=== PATIENT | female | born 1995 | race Caucasian/White ===

== ENCOUNTER 2018-10-07 02:24 | Emergency (ER) | payer BC ==
[2018-10-07] MEDS ORDERED: IBUPROFEN 800 MG TAB PO ONE (02:43)
--- NOTE | 2018-10-07 02:43 | EDPHY ---
H & P Stated Complaint: dx w/mono saturday. came to ED because throat pain worsening Time Seen by Provider: 10/07/18 02:42 HPI/ROS: HPI CHIEF COMPLAINT: Sore throat diagnosed with mono. HISTORY OF PRESENT ILLNESS: Patient is a 23-year-old female, otherwise healthy , diagnosed on Saturday or 5 days ago with mono. A week before that she had a strep test and was negative however was placed on a course of antibiotics she has completed that antibiotics however her throat pain continues to give her discomfort. She went to urgent care on Saturday and was diagnosed with mono. At that time she was given 1 dose of steroids felt slightly better. She has been alternating Tylenol Motrin she last took Tylenol 2 hr ago and Motrin over 5 hr ago. She arrives to the emergency room with worsening throat pain. She denies any fever. Does have pain when she swallows. Denies cough. Denies trouble breathing. Past Medical History: Denies medical history Past Surgical History: Denies surgical history Social History: Denies drugs alcohol tobacco. [employer] student. Family History: Noncontributory ROS REVIEW OF SYSTEMS: 10 Systems were reviewed and negative with the exception of the elements mentioned in the history of present illness. Exam Constitutional triage nursing summary reviewed, vital signs reviewed, awake/ alert. Tachycardic 120 upon arrival Eyes normal conjunctivae and sclera, EOMI, PERRLA. HENT posterior pharynx erythematous, uvula midline, no asymmetrical swelling, her tonsillar bed is 3+ but not kissing, symmetrical, some mild white exudate, no signs of Steve's, no stridor, able to handle her secretions, moist mucus membranes, no epistaxis, neck supple/ no meningismus, no raccoon eyes. Respiratory clear to auscultation bilaterally, normal breath sounds, no respiratory distress, no wheezing. Cardiovascular tachycardia, regular rhythm, no murmur, no edema, distal pulses normal. Gastrointestinal soft, non-tender, no rebound, no guarding, normal bowel sounds, no distension, no pulsatile mass. Genitourinary no CVA tenderness. Musculoskeletal no midline vertebral tenderness, full range of motion, no calf swelling, no tenderness of extremities, no meningismus, good pulses, neurovascularly intact. Skin pink, warm, & dry, no rash, skin atraumatic. Neurologic awake, alert and oriented x 3, AAOx3, moves all 4 extremities equally, motor intact, sensory intact, CN II-XII intact, normal cerebellar, normal vision, normal speech. Psychiatric normal mood/affect. Heme/Lymph/Immune no lymphadenopathy. Differential Diagnosis: Includes but is not limited to in a particular order: Viral pharyngitis, strep pharyngitis, mono, tonsillitis, deep space neck infection Medical Decision Making: Plan for this patient IV establishment with IV fluid bolus, IV Decadron 10 mg for inflammation pain control, ibuprofen 800 mg, cold fluids. Basic blood work and re-evaluate. Re-evaluation: Rapid strep negative [place] is positive. 0432: Re-evaluation this patient resting comfortably no acute distress. 2nd L fluid hung. No stridor no trismus. Strep is negative mono was positive She is feeling better after IV Toradol and IV Decadron and her 1st L fluid. Re-examination she reports to me that her throat hurts however she is able swallow her she was concerned that the swelling was going further down her neck. Given this will plan on CT soft tissue neck with IV contrast to make sure there is no deep space abscess. I believe her symptoms are mostly consistent with mono and pharyngitis. I do recommend she drink lots of fluids stay well-hydrated. Alternate Tylenol Motrin every 6-8 hours for pain control Decadron for the next 3 days Follow up with ENT Return precautions discussed she understands. CT scan soft tissue neck with IV contrast findings which appear most consistent bilateral palatine and lingual tonsillitis No discrete tonsillar peritonsillar abscess although based on the appearance of multiple areas of relative decreased attenuation within the tonsils there may be bilateral developing tonsillar abscesses. I will discuss this patient with ENT. 0616: Discussed case with ENT. KELLY Hawkins on-calll for ENT, be glad to see the patient in the office today. We discussed case in detail including lab work , CT scan findings. I asked if they would like me to put her on antibiotics however they are requesting that hold off on antibiotics and follow up with ENT today. I discussed this with the patient. She would like to go home. I do recommend she alternate Tylenol Motrin. Prescription provided for Decadron. Follow up closely with ENT She should return emergency room if she has worsening symptoms including severe throat pain, vomiting, fever, not doing well. Source: Patient - Personal History LMP (Females 10-55): 22-28 Days Ago Current Tetanus/Diphtheria Vaccine: Yes Current Tetanus Diphtheria and Acellular Pertussis (TDAP): Yes - Medical/Surgical History Hx Asthma: No Hx Chronic Respiratory Disease: No Hx Diabetes: No Hx Cardiac Disease: No Hx Renal Disease: No Hx Cirrhosis: No Hx Alcoholism: No Hx HIV/AIDS: No Hx Splenectomy or Spleen Trauma: No Other PMH: denies - Social History Smoking Status: Never smoked Constitutional: Initial Vital Signs Temperature (C) 37.2 C 10/07/18 02:28 Heart Rate 120 H 10/07/18 02:28 Respiratory Rate 20 10/07/18 02:28 Blood Pressure 138/99 H 10/07/18 02:28 O2 Sat (%) 95 10/07/18 02:28 O2 Delivery Mode Room Air Allergies/Adverse Reactions: No Known Allergies Allergy (Unverified 10/07/18 02:27) Home Medications: Medication Instructions Recorded Amoxicillin/Clavulanate Pot 875 mg PO BID #14 tab 10/07/18 [Augmentin 875 MG TAB (*)] Dexamethasone [Decadron 4 MG (*)] 4 mg PO DAILY #4 tab 10/07/18 Medical Decision Making - Data Points Laboratory Results: Laboratory Results 10/07/18 03:00 10/07/18 03:00 10/07/18 10/07/18 10/07/18 Unknown 03:00 03:00 WBC RBC Hgb Hct MCV MCH MCHC RDW Plt Count MPV Neut % (Auto) Lymph % (Auto) [place] % (Auto) Eos % (Auto) Baso % (Auto) Nucleat RBC Rel Count Absolute Neuts (auto) Absolute Lymphs (auto) Absolute Monos (auto) Absolute Eos (auto) Absolute Basos (auto) Absolute Nucleated RBC Immature Gran % Seg Neutrophils % Band Neutrophils % Lymphocytes % Monocytes % Eosinophils % Basophils % Metamyelocytes % Myelocytes % Promyelocytes % Blast Cells % Immature Gran # Absolute Seg Neuts Absolute Band Neuts Absolute Lymphocytes Absolute Monocytes Absolute Eosinophils Absolute Basophils Absolute Metamyelocyte Absolute Myelocytes Absolute Promyelocytes Absolute Plasma Cells RBC/WBC/PLT Morphology Absolute Blast Cells Plasma Cells % Smudge Cells Platelet Estimate Smear Review By Sodium 138 mEq/L mEq/L (135-145) Potassium 3.8 mEq/L mEq/L (3.5-5.2) Chloride 108 mEq/L mEq/L (97-110) Carbon Dioxide 21 mEq/l L mEq/l (22-31) Anion Gap 9 mEq/L mEq/L (6-14) BUN 12 mg/dL mg/dL (7-23) Creatinine 0.5 mg/dL L mg/dL (0.6-1.0) Estimated GFR > 60 Glucose 94 mg/dL mg/dL (70-100) Calcium 8.7 mg/dL mg/dL (8.5-10.4) Monoscreen POSITIVE H (NEGATIVE) Group A Strep Screen Group A Strep DNA Pending 10/07/18 10/07/18 03:00 02:45 WBC 7.83 10^3/uL 10^3/uL (3.80-9.50) RBC 3.91 10^6/uL L 10^6/uL (4.18-5.33) Hgb 11.8 g/dL L g/dL (12.6-16.3) Hct 35.3 % L % (38.0-47.0) MCV 90.3 fL fL (81.5-99.8) MCH 30.2 pg pg (27.9-34.1) MCHC 33.4 g/dL g/dL (32.4-36.7) RDW 14.6 % % (11.5-15.2) Plt Count 130 10^3/uL L 10^3/uL (150-400) MPV 10.4 fL fL (8.7-11.7) Neut % (Auto) Not Reported Lymph % (Auto) Not Reported [place] % (Auto) Not Reported Eos % (Auto) Not Reported Baso % (Auto) Not Reported Nucleat RBC Rel Count Not Reported Absolute Neuts (auto) Not Reported Absolute Lymphs (auto) Not Reported Absolute Monos (auto) Not Reported Absolute Eos (auto) Not Reported Absolute Basos (auto) Not Reported Absolute Nucleated RBC Not Reported Immature Gran % Not Reported Seg Neutrophils % 47.6 % % Band Neutrophils % 1.9 % % Lymphocytes % 37.9 % % Monocytes % 9.7 % % Eosinophils % 0.0 % % Basophils % 1.0 % % Metamyelocytes % 0.0 % % Myelocytes % 1.0 % % Promyelocytes % 0.0 % % Blast Cells % 1.0 % % Immature Gran # Not Reported Absolute Seg Neuts 3.72 10^3/uL 10^3/uL (1.70-6.50) Absolute Band Neuts 0.15 10^3/uL 10^3/uL (0.00-0.70) Absolute Lymphocytes 2.96 10^3/uL 10^3/uL (1.00-3.00) Absolute Monocytes 0.76 10^3/uL 10^3/uL (0.30-0.80) Absolute Eosinophils 0.00 10^3/uL L 10^3/uL (0.03-0.40) Absolute Basophils 0.08 10^3/uL 10^3/uL (0.02-0.10) Absolute Metamyelocyte 0.00 10^3/mL 10^3/mL (0.00-0.00) Absolute Myelocytes 0.08 10^3/mL H 10^3/mL (0.00-0.00) Absolute Promyelocytes 0.00 10^3/uL 10^3/uL (0.00-0.00) Absolute Plasma Cells 0.00 10^3/uL 10^3/uL (0.00-0.00) RBC/WBC/PLT Morphology NORMAL (NORMAL) Absolute Blast Cells 0.08 10^3/uL H 10^3/uL (0.00-0.00) Plasma Cells % 0.0 % % Smudge Cells 1+ H Platelet Estimate DECREASED L (ADEQ) Smear Review By Pending Sodium Potassium Chloride Carbon Dioxide Anion Gap BUN Creatinine Estimated GFR Glucose Calcium Monoscreen Group A Strep Screen NEGATIVE (NEGATIVE) Group A Strep DNA Medications Given: Discontinued Medications Dexamethasone (Decadron Injection) 10 mg IVP EDNOW ONE Stop: 10/07/18 02:50 Last Admin: 10/07/18 03:07 Dose: 10 mg Diphenhydramine HCl (Benadryl) 25 mg PO EDNOW ONE Stop: 10/07/18 06:11 Last Admin: 10/07/18 06:10 Dose: 25 mg Sodium Chloride (Ns) 1,000 mls @ 0 mls/hr IV EDNOW ONE; Wide Open PRN Reason: Protocol Stop: 10/07/18 02:49 Last Admin: 10/07/18 03:07 Dose: 1,000 mls Sodium Chloride (Ns) 1,000 mls @ 0 mls/hr IV ONCE ONE PRN Reason: Wide Open Stop: 10/07/18 04:32 Last Admin: 10/07/18 04:40 Dose: 1,000 mls Ibuprofen (Motrin) 800 mg PO EDNOW ONE Stop: 10/07/18 02:44 Last Admin: 10/07/18 03:17 Dose: Not Given Ketorolac Tromethamine (Toradol) 30 mg IVP EDNOW ONE Stop: 10/07/18 03:03 Last Admin: 10/07/18 03:07 Dose: 30 mg Ketorolac Tromethamine (Toradol) 30 mg IVP EDNOW ONE Stop: 10/07/18 03:03 Last Admin: 10/07/18 03:08 Dose: Not Given Departure - Departure Disposition: Home, Routine, Self-Care Condition: Good Instructions: Mononucleosis (ED), Pharyngitis (ED) Additional Instructions: 1. Make sure to drink lots of fluids stay well-hydrated 2. Alternate Tylenol and Motrin every 6-8 hours for pain and fever control 3. Return to the emergency room if worsening symptoms 4. Please follow up with ENT today. They will see you in their office. 5. Return if worse. 6. Follow up with ENT today. 7. Have given you a prescription for Augmentin but hold this prescription to use ENT today. Referrals: NONE *PRIMARY CARE P,. [Primary Care Provider] - As per Instructions Jose Escobedo MD [Medical Doctor] - As per Instructions Prescriptions: Amoxicillin/Clavulanate Pot [Augmentin 875 MG TAB (*)] 875 mg PO BID #14 tab Dexamethasone [Decadron 4 MG (*)] 4 mg PO DAILY #4 tab
[2018-10-07] MEDS ORDERED: NS 1,000 ML IV ONE ×2 (02:48→04:31)
[2018-10-07] MEDS ORDERED: DEXAMETHASONE 10 MG/ML VIAL IVP ONE (02:49)
[2018-10-07] MEDS ORDERED: KETOROLAC 30 MG/1 ML SDV IVP ONE ×2 (03:02)
[2018-10-07 03:14] LABS: PLATELET COUNT 130 10^3/uL (150-400)
[2018-10-07] MEDS ORDERED: IOHEXOL 350mgI/ML (OMNIPAQUE) 150 ML BTL IV ONE (04:34)
[2018-10-07] MEDS ORDERED: diphenhydrAMINE 25 MG CAP PO ONE ×2 (06:09→06:10)
[2018-10-07 06:32] VITALS: BP 124/82
== END 2018-10-07 06:31 | disposition home or self-care (01) ==
DX: B27.90 Infectious mononucleosis, unspecified without complication (principal); J02.9 Acute pharyngitis, unspecified; E86.9 Volume depletion, unspecified
CPT/HCPCS: 96374; J1100; J1885; Q9967

== ENCOUNTER 2018-10-08 19:47 | Observation (INO) | payer BC ==
[2018-10-08] MEDS ORDERED: NS 1,000 ML IV ONE ×2 (20:11)
[2018-10-08] MEDS ORDERED: KETOROLAC 30 MG/1 ML SDV IVP ONE (20:12)
[2018-10-08] MEDS ORDERED: CLINDAMYCIN 600 MG/DEXTROSE 50 ML IV ONE (20:12)
[2018-10-08] MEDS ORDERED: DEXAMETHASONE 10 MG/ML VIAL IVP ONE (20:12)
--- NOTE | 2018-10-08 20:17 | EDPHY ---
H & P Stated Complaint: Pt dx juliana zarate on Saturday was unable to get into ENT Time Seen by Provider: 10/08/18 20:11 HPI/ROS: HPI: This is a 23-year-old female presents with Chief Complaint: [place], throat pain Location: Throat Quality: Pain Duration: 1 week Signs and Symptoms: no fever times 48 hr, no nausea, no vomiting, no diarrhea, no urinary symptoms, no chest pain, no shortness of breath, no wheezing, no cough, + sore throat, no neck stiffness, no joint pain, + swollen glands, no ear pain, no rash, + muffled voice, no drooling Timing: Worsening Severity: Severe Context: Patient presents accompanied by both parents who flew in from [place] , with complaints of continued throat pain, muffled voice, difficulty swallowing , swollen glands. She reports that 6 days ago she started to experience shows sore throat in her strep was negative but started on antibiotics. She then went to the urgent care on Saturday in strep was negative at that time but mono was positive. Patient was then seen in the emergency room 2 days ago, rapid strep negative at that time, mononucleosis positive, given IV Toradol, IV Decadron and also script for Augmentin with ENT follow-up with Dr. Escobedo. Patient reports that she has not been able to follow up with Dr. Escobedo as he has been "out of town." CT neck at that time was performed which showed moderate enlargement and enhancement of the adenoid, lingual and palatine tonsils without in [place] upon the oropharynx and nasopharynx in associated phlegmon formation bilaterally without abscess. Reactive lymphadenopathy within the neck noted. She did take Decadron orally yesterday and today. She is able to drink vitamin water and had a few bite of beef stew. Denies any abdominal pain, nausea, vomiting, fevers over the last 48 hr. Patient has also noted within the last 24 hr a fine pinpoint rash that covers her torso and upper extremities. It is not itchy in nature. Modifying Factors: See above Comment: ROS: A comprehensive 10 system review of systems is otherwise negative aside from elements mentioned in the history of present illness. MEDICAL/SURGICAL/SOCIAL HISTORY: Medical history: Generally healthy. Does not take any regular medications. LMP 2-3 weeks ago. Surgical history: Denies Social history: Student at [employer]. Family history noncontributory. CONSTITUTIONAL: Ill but nontoxic-appearing young adult white female, awake and alert, no obvious distress HEENT: Atraumatic and normocephalic, PERRL, EOMI. Nares patent; no rhinorrhea; no nasal mucosal edema. Tympanic membranes clear. Oropharynx clear, + halitosis; 2+ tonsillar hypertrophy with moderate erythema; uvula midline; white exudate and dry oral mucosa. Airway patent. Moderate anterior cervical lymphadenopathy. No meningismus. Cardiovascular: Normal S1/S2, regular rate, regular rhythm, without murmur rub or gallop. PULMONARY/CHEST: Symmetrical and nontender. Clear to auscultation bilaterally. Good air movement. No accessory muscle usage. ABDOMEN: Soft, nondistended, nontender, no rebound, no guarding, no peritoneal signs, no masses or organomegaly. No CVAT. EXTREMITIES: 2/2 pulses, strength 5/5, no deformities, no clubbing, no cyanosis or edema. NEUROLOGICAL: no focal neuro deficits. GCS 15. muffled voice noted. SKIN: Warm and dry, finding raise seen pipe her rash noted on torso and upper extremities; blanches with palpation. Good capillary refill. Source: Patient, Family (father and mother) Exam Limitations: Clinical condition - Personal History LMP (Females 10-55): 15-21 Days Ago Current Tetanus/Diphtheria Vaccine: Yes Current Tetanus Diphtheria and Acellular Pertussis (TDAP): Yes - Medical/Surgical History Hx Asthma: No Hx Chronic Respiratory Disease: No Hx Diabetes: No Hx Cardiac Disease: No Hx Renal Disease: No Hx Cirrhosis: No Hx Alcoholism: No Hx HIV/AIDS: No Hx Splenectomy or Spleen Trauma: No Other PMH: denies - Social History Smoking Status: Never smoked Constitutional: Initial Vital Signs Temperature (C) 37.1 C 10/08/18 19:48 Heart Rate 96 10/08/18 19:48 Respiratory Rate 16 10/08/18 19:48 Blood Pressure 134/99 H 10/08/18 19:48 O2 Sat (%) 99 10/08/18 19:48 O2 Delivery Mode Room Air Allergies/Adverse Reactions: No Known Allergies Allergy (Verified 10/08/18 19:51) Home Medications: Medication Instructions Recorded Amoxicillin/Clavulanate Pot 875 mg PO BID #14 tab 10/07/18 [Augmentin 875 MG TAB (*)] Dexamethasone [Decadron 4 MG (*)] 4 mg PO DAILY #4 tab 10/07/18 Medical Decision Making ED Course/Re-evaluation: Vital signs reviewed and stable upon arrival. Placed on cardiac nurse specialist. IV access, laboratory studies ordered Patient given 2 L normal saline, IV Decadron 10 mg, IV Toradol 30 mg, IV clindamycin Labs reviewed. No signs of leukocytosis/anemia/platelet dysfunction/LISBETH/ electrolyte imbalance/pancreatitis. + elevated LFTs, elevated CRP. No signs of sepsis. Patient has a new rash that is scarlet fever/strep rash looking. Wonder if she has not been properly treated with antibiotics. Ten that is why she has failed outpatient therapy. 210: ED decision to consult hospitalist for admission. Spoke with Dr. Alarcon who kindly agrees to admit patient for further care. This patient was seen under the supervision of my secondary supervising physician. I evaluated care for this patient with attending. Discussed this patient with Dr. Rucker. Differential Diagnosis: Differential diagnosis includes but is not limited to airway compromise, tonsillar abscess, sepsis. - Data Points Laboratory Results: Laboratory Results 10/08/18 20:18 10/08/18 10/08/18 10/08/18 20:18 20:18 20:18 WBC RBC Hgb Hct MCV MCH MCHC RDW Plt Count MPV Neut % (Auto) Lymph % (Auto) [place] % (Auto) Eos % (Auto) Baso % (Auto) Nucleat RBC Rel Count Absolute Neuts (auto) Absolute Lymphs (auto) Absolute Monos (auto) Absolute Eos (auto) Absolute Basos (auto) Absolute Nucleated RBC Immature Gran % Immature Gran # Platelet Estimate ESR VBG Lactic Acid 1.3 mmol/L mmol/L (0.7-2.1) Total Bilirubin 0.8 mg/dL mg/dL (0.1-1.4) Conjugated Bilirubin 0.4 mg/dL mg/dL (0.0-0.5) Unconjugated Bilirubin 0.4 mg/dL mg/dL (0.0-1.1) AST 325 IU/L H IU/L (14-46) ALT 454 IU/L H IU/L (9-52) Alkaline Phosphatase 125 IU/L IU/L (38-126) C-Reactive Protein 34.8 mg/L H mg/L (<10.0) Total Protein 7.3 g/dL g/dL (6.3-8.2) Albumin 3.7 g/dL g/dL (3.5-5.0) Beta HCG, Qual NEGATIVE 10/08/18 20:18 WBC 9.21 10^3/uL 10^3/uL (3.80-9.50) RBC 4.23 10^6/uL 10^6/uL (4.18-5.33) Hgb 12.9 g/dL g/dL (12.6-16.3) Hct 39.4 % % (38.0-47.0) MCV 93.1 fL fL (81.5-99.8) MCH 30.5 pg pg (27.9-34.1) MCHC 32.7 g/dL g/dL (32.4-36.7) RDW 14.2 % % (11.5-15.2) Plt Count 159 10^3/uL 10^3/uL (150-400) MPV 10.2 fL fL (8.7-11.7) Neut % (Auto) Pending Lymph % (Auto) Pending [place] % (Auto) Pending Eos % (Auto) Pending Baso % (Auto) Pending Nucleat RBC Rel Count Pending Absolute Neuts (auto) Pending Absolute Lymphs (auto) Pending Absolute Monos (auto) Pending Absolute Eos (auto) Pending Absolute Basos (auto) Pending Absolute Nucleated RBC Pending Immature Gran % Pending Immature Gran # Pending Platelet Estimate Pending ESR 16 MM/HR MM/HR (0-20) VBG Lactic Acid Total Bilirubin Conjugated Bilirubin Unconjugated Bilirubin AST ALT Alkaline Phosphatase C-Reactive Protein Total Protein Albumin Beta HCG, Qual Medications Given: Discontinued Medications Dexamethasone (Decadron Injection) 10 mg IVP EDNOW ONE Stop: 10/08/18 20:13 Last Admin: 10/08/18 20:18 Dose: 10 mg Clindamycin Phosphate/Dextrose (Cleocin 600 Mg (Premix)) 50 mls @ 100 mls/hr IV EDNOW ONE PRN Reason: Protocol Stop: 10/08/18 20:41 Last Admin: 10/08/18 20:23 Dose: 50 mls Sodium Chloride (Ns) 1,000 mls @ 0 mls/hr IV ONCE ONE; Wide Open PRN Reason: Protocol Stop: 10/08/18 20:12 Last Admin: 10/08/18 20:17 Dose: 1,000 mls Sodium Chloride (Ns) 1,000 mls @ 0 mls/hr IV ONCE ONE; Wide Open PRN Reason: Protocol Stop: 10/08/18 20:12 Last Admin: 10/08/18 20:30 Dose: 1,000 mls Ketorolac Tromethamine (Toradol) 30 mg IVP EDNOW ONE Stop: 10/08/18 20:13 Last Admin: 10/08/18 20:25 Dose: 30 mg Departure - Departure Disposition: [facility] Acute Clinical Impression: Unable to eat, Tonsillar and adenoid hypertrophy, Elevated LFTs, Rash, Failure of outpatient treatment Infectious mononucleosis Qualifiers: Infectious mononucleosis etiology: unspecified organism Infectious mononucleosis complication: without complication Qualified Code(s): B27.90 - Infectious mononucleosis, unspecified without complication Condition: Fair
[2018-10-08 20:29] LABS: PLATELET COUNT 159 10^3/uL (150-400)
[2018-10-08] MEDS ORDERED: ONDANSETRON 4 MG/2 ML VIAL IVP PRN (21:17)
[2018-10-08] MEDS ORDERED: HYDROCODONE/APAP 5/325 TAB PO PRN (21:17)
[2018-10-08] MEDS ORDERED: ACETAMINOPHEN 325 MG TAB PO PRN (21:17)
[2018-10-08] MEDS ORDERED: ONDANSETRON DISINTEGRATING 4 MG TAB PO PRN (21:17)
[2018-10-08] MEDS ORDERED: KETOROLAC 30 MG/1 ML SDV IVP PRN (21:46)
--- NOTE | 2018-10-08 22:11 | PDGENHP ---
<Juan Ramon Alarcon N - Last Filed: 10/08/18 22:15> History and Physical - Chief Complaint Sore throat - History of Present Illness Destiny Mackey is a 23 yo F with no significant PMHx who presents to [facility] for severe throat pain. Patient reports that she started to experience a sore throat one week ago, was tested for strep at that time which was negative but started on abx. She then went to Urgent care on Saturday and had a repeat strep test that was negative but had a positive [place] test. She was then seen in [facility] ED 2 days ago for throat pain. Rapid strep was negative at that time, mono positive, she was given IV Toradol, IV Decadron and discharged with a script for Augmentin and f/u with ENT. She reports that she was not able to obtai abx and f/u with ENT. CT neck was also done which showed moderate enlargement and enhancement of the adenoid, lingual and palatine tonsils. She has been taking Ibuprofen and Tylenol for pain which helps but she in unable to sleep 2/2 to pain. She states she is able to drink water and have some soup. She denies f/c , n/v, CP, SOB, abdominal pain. History Information - Allergies/Home Medication List Allergies/Adverse Reactions: No Known Allergies Allergy (Verified 10/08/18 19:51) Home Medications: Acetaminophen [Tylenol 325mg (*)] 325 - 650 mg PO Q6 PRN 10/08/18 [Last Taken 325mg] Ibuprofen [Motrin (*)] 200 - 600 mg PO Q4H PRN 10/08/18 [Last Taken 10/08/18 200mg] I have personally reviewed and updated: family history, medical history, social history, surgical history - Past Medical History no pertinent PMH - Surgical History Reports: no pertinent surgical hx - Family History Positive for: non-pertinent - Social History Smoking Status: Never smoked Review of Systems Review of Systems: ROS: 10pt was reviewed & negative except for what was stated in HPI & below Physical Exam Physical Exam: Temp Pulse Resp BP Pulse Ox 37.1 C 86 20 133/100 H 99 10/08/18 19:48 10/08/18 21:02 10/08/18 21:02 10/08/18 21:02 10/08/18 21:02 Constitutional: uncomfortable Eyes: PERRL Ears, Nose, Mouth, Throat: moist mucous membranes, other (cervical lymphadenopathy) Cardiovascular: regular rate and rhythym Respiratory: no respiratory distress Gastrointestinal: soft, non-tender abdomen Skin: warm Musculoskeletal: generalized weakness Neurologic: AAOx3 Psychiatric: interacting appropriately Lab Data & Imaging Review 10/08/18 20:18 WBC 9.21 10^3/uL (3.80-9.50) 10/08/18 20:18 RBC 4.23 10^6/uL (4.18-5.33) 10/08/18 20:18 Hgb 12.9 g/dL (12.6-16.3) 10/08/18 20:18 Hct 39.4 % (38.0-47.0) 10/08/18 20:18 MCV 93.1 fL (81.5-99.8) 10/08/18 20:18 MCH 30.5 pg (27.9-34.1) 10/08/18 20:18 MCHC 32.7 g/dL (32.4-36.7) 10/08/18 20:18 RDW 14.2 % (11.5-15.2) 10/08/18 20:18 Plt Count 159 10^3/uL (150-400) 10/08/18 20:18 MPV 10.2 fL (8.7-11.7) 10/08/18 20:18 Neut % (Auto) 49.7 % (39.3-74.2) 10/08/18 20:18 Lymph % (Auto) 40.6 % (15.0-45.0) 10/08/18 20:18 [place] % (Auto) 8.4 % (4.5-13.0) 10/08/18 20:18 Eos % (Auto) 0.0 % (0.6-7.6) L 10/08/18 20:18 Baso % (Auto) 0.8 % (0.3-1.7) 10/08/18 20:18 Nucleat RBC Rel Count 0.0 % (0.0-0.2) 10/08/18 20:18 Absolute Neuts (auto) 4.58 10^3/uL (1.70-6.50) 10/08/18 20:18 Absolute Lymphs (auto) 3.74 10^3/uL (1.00-3.00) H 10/08/18 20:18 Absolute Monos (auto) 0.77 10^3/uL (0.30-0.80) 10/08/18 20:18 Absolute Eos (auto) 0.00 10^3/uL (0.03-0.40) L 10/08/18 20:18 Absolute Basos (auto) 0.07 10^3/uL (0.02-0.10) 10/08/18 20:18 Absolute Nucleated RBC 0.00 10^3/uL (0-0.01) 10/08/18 20:18 Immature Gran % 0.5 % (0.0-1.1) 10/08/18 20:18 Immature Gran # 0.05 10^3/uL (0.00-0.10) 10/08/18 20:18 RBC/WBC/PLT Morphology TNP 10/08/18 20:18 Atypical Lymphocytes 1+ H 10/08/18 20:18 Smudge Cells 1+ H 10/08/18 20:18 Platelet Estimate ADEQUATE (ADEQ) 10/08/18 20:18 Polychromasia 1+ H 10/08/18 20:18 Echinocytes 1+ H 10/08/18 20:18 ESR 16 MM/HR (0-20) 10/08/18 20:18 VBG Lactic Acid 1.3 mmol/L (0.7-2.1) 10/08/18 20:18 Total Bilirubin 0.8 mg/dL (0.1-1.4) 10/08/18 20:18 Conjugated Bilirubin 0.4 mg/dL (0.0-0.5) 10/08/18 20:18 Unconjugated Bilirubin 0.4 mg/dL (0.0-1.1) 10/08/18 20:18 AST 325 IU/L (14-46) H 10/08/18 20:18 ALT 454 IU/L (9-52) H 10/08/18 20:18 Alkaline Phosphatase 125 IU/L (38-126) 10/08/18 20:18 C-Reactive Protein 34.8 mg/L (<10.0) H 10/08/18 20:18 Total Protein 7.3 g/dL (6.3-8.2) 10/08/18 20:18 Albumin 3.7 g/dL (3.5-5.0) 10/08/18 20:18 Beta HCG, Qual NEGATIVE 10/08/18 20:18 Assessment & Plan Assessment: Infectious mononucleosis (Acute) - Dx within past week, having continued severe throat pain - Seen in ED on Saturday, d/c on Decadron and Augmentin despite negative strep test - Will continue Decadron 0.25 mg/kg q6 hours - Will continue Clindamycin - Supportive care with IVF, pain medications - If no improvement in symptoms, consider repeat CT to evaluate for abscess Transaminitis (Acute) - AST/ALT elevated on admission to 325, 542 without elevation in bilirubin - In setting of mononucleosis as above - Continue to trend LFTs FEN: IVF, Regular Code: FULL DVT PPx: Low risk, SCDs Dispo: Admit to Medicine <Kentrell Rucker E - Last Filed: 10/08/18 22:25> History and Physical - History of Present Illness Review of Systems Review of Systems: Physical Exam Physical Exam: Temp Pulse Resp BP Pulse Ox 36.7 C 98 18 138/97 H 96 10/08/18 22:16 10/08/18 22:16 10/08/18 22:16 10/08/18 22:16 10/08/18 22:16 Lab Data & Imaging Review 10/08/18 20:18 WBC 9.21 10^3/uL (3.80-9.50) 10/08/18 20:18 RBC 4.23 10^6/uL (4.18-5.33) 10/08/18 20:18 Hgb 12.9 g/dL (12.6-16.3) 10/08/18 20:18 Hct 39.4 % (38.0-47.0) 10/08/18 20:18 MCV 93.1 fL (81.5-99.8) 10/08/18 20:18 MCH 30.5 pg (27.9-34.1) 10/08/18 20:18 MCHC 32.7 g/dL (32.4-36.7) 10/08/18 20:18 RDW 14.2 % (11.5-15.2) 10/08/18 20:18 Plt Count 159 10^3/uL (150-400) 10/08/18 20:18 MPV 10.2 fL (8.7-11.7) 10/08/18 20:18 Neut % (Auto) 49.7 % (39.3-74.2) 10/08/18 20:18 Lymph % (Auto) 40.6 % (15.0-45.0) 10/08/18 20:18 [place] % (Auto) 8.4 % (4.5-13.0) 10/08/18 20:18 Eos % (Auto) 0.0 % (0.6-7.6) L 10/08/18 20:18 Baso % (Auto) 0.8 % (0.3-1.7) 10/08/18 20:18 Nucleat RBC Rel Count 0.0 % (0.0-0.2) 10/08/18 20:18 Absolute Neuts (auto) 4.58 10^3/uL (1.70-6.50) 10/08/18 20:18 Absolute Lymphs (auto) 3.74 10^3/uL (1.00-3.00) H 10/08/18 20:18 Absolute Monos (auto) 0.77 10^3/uL (0.30-0.80) 10/08/18 20:18 Absolute Eos (auto) 0.00 10^3/uL (0.03-0.40) L 10/08/18 20:18 Absolute Basos (auto) 0.07 10^3/uL (0.02-0.10) 10/08/18 20:18 Absolute Nucleated RBC 0.00 10^3/uL (0-0.01) 10/08/18 20:18 Immature Gran % 0.5 % (0.0-1.1) 10/08/18 20:18 Immature Gran # 0.05 10^3/uL (0.00-0.10) 10/08/18 20:18 RBC/WBC/PLT Morphology TNP 10/08/18 20:18 Atypical Lymphocytes 1+ H 10/08/18 20:18 Smudge Cells 1+ H 10/08/18 20:18 Platelet Estimate ADEQUATE (ADEQ) 10/08/18 20:18 Polychromasia 1+ H 10/08/18 20:18 Echinocytes 1+ H 10/08/18 20:18 ESR 16 MM/HR (0-20) 10/08/18 20:18 VBG Lactic Acid 1.3 mmol/L (0.7-2.1) 10/08/18 20:18 Total Bilirubin 0.8 mg/dL (0.1-1.4) 10/08/18 20:18 Conjugated Bilirubin 0.4 mg/dL (0.0-0.5) 10/08/18 20:18 Unconjugated Bilirubin 0.4 mg/dL (0.0-1.1) 10/08/18 20:18 AST 325 IU/L (14-46) H 10/08/18 20:18 ALT 454 IU/L (9-52) H 10/08/18 20:18 Alkaline Phosphatase 125 IU/L (38-126) 10/08/18 20:18 C-Reactive Protein 34.8 mg/L (<10.0) H 10/08/18 20:18 Total Protein 7.3 g/dL (6.3-8.2) 10/08/18 20:18 Albumin 3.7 g/dL (3.5-5.0) 10/08/18 20:18 Beta HCG, Qual NEGATIVE 10/08/18 20:18 Assessment & Plan Assessment: Elevated LFTs (Acute) Failure of outpatient treatment (Acute) Infectious mononucleosis (Acute) Rash (Acute) Tonsillar and adenoid hypertrophy (Acute) Unable to eat (Acute)
[2018-10-08] MEDS: NS 1,000 ML IV SCH (22:27)
[2018-10-09] MEDS: DEXAMETHASONE 10 MG/ML VIAL IVP SCH ×5 (00:10→22:55)
[2018-10-09] MEDS: IBUPROFEN 200 MG TAB PO PRN ×3 (00:10→15:43)
[2018-10-09] MEDS: CLINDAMYCIN 600 MG/DEXTROSE 50 ML IV SCH ×3 (04:26→19:52)
[2018-10-09 05:44] LABS: PLATELET COUNT 149 10^3/uL (150-400)
--- NOTE | 2018-10-09 09:51 | ASMTCMCOM ---
CM Note CM Note Notes: Pt admitted to hospital for [place], she was here recently for strep and discharged. Pt is a student at , anticipate will dc home when medically stable. CM available for any changes. DC Plan: Independent Date Signed: 10/09/2018 09:50 AM Electronically Signed By:Jerica Kuhn RN
[2018-10-09] MEDS: NS 1,000 ML IV SCH (10:00)
--- NOTE | 2018-10-09 12:24 | HOSPPROG ---
Hospitalist Progress Note Assessment/Plan: 23y female c/o sore throat. First encounter, chart reviewed. D/W Father at bedside and RN. #Infectious mononucleosis (Acute) - Dx within past week, having continued severe throat pain - Seen in ED on Saturday, d/c on Decadron and Augmentin despite negative strep test - Will continue Decadron 0.25 mg/kg q6 hours - Will continue Clindamycin - Supportive care with IVF, pain medications - If no improvement in symptoms, consider repeat CT to evaluate for abscess #Transaminitis (Acute) - AST/ALT elevated on admission - improved today - In setting of mononucleosis - Continue to trend LFTs #Rash -in setting of infection -follow FEN: IVF, Regular Code: FULL DVT PPx: Low risk, SCDs Dispo: Admit to Medicine adjusted pain meds cont supportive care CT scan if worse Subjective: Still having pain when swallowing. Slept some last night. Objective: Vital Signs Temp Pulse Resp BP Pulse Ox 36.6 C 93 16 139/76 H 96 10/09/18 11:15 10/09/18 11:15 10/09/18 11:15 10/09/18 11:15 10/09/18 11:15 Laboratory Results 10/09/18 04:53 10/09/18 04:53 10/08/18 10/09/18 10/10/18 05:59 05:59 05:59 Intake Total 2100 Balance 2100 - Physical Exam Constitutional: appears nourished, uncomfortable, No obese Eyes: PERRL, anicteric sclera, EOMI Ears, Nose, Mouth, Throat: moist mucous membranes, hearing normal, ears appear normal Cardiovascular: regular rate and rhythym, No JVD, No edema Respiratory: no respiratory distress, no rales or rhonchi, reduced air movement Gastrointestinal: normoactive bowel sounds, No tenderness, No ascites Skin: warm, rash, No mottled Musculoskeletal: normal joint ROM, no joint effusions, generalized weakness Neurologic: AAOx3 Psychiatric: interacting appropriately, not anxious, not encephalopathic ICD10 Worksheet Patient Problems: Problems Problem Status Onset Infectious mononucleosis Acute Unable to eat Acute Tonsillar and adenoid hypertrophy Acute Elevated LFTs Acute Rash Acute Failure of outpatient treatment Acute
[2018-10-09] MEDS: HYDROCODONE/APAP 5/325 TAB PO PRN ×3 (12:31→22:55)
[2018-10-10] MEDS: IBUPROFEN 200 MG TAB PO PRN (02:03)
[2018-10-10] MEDS: CLINDAMYCIN 600 MG/DEXTROSE 50 ML IV SCH ×2 (04:10→11:43)
[2018-10-10] MEDS: HYDROCODONE/APAP 5/325 TAB PO PRN ×3 (04:12→12:58)
[2018-10-10] MEDS: DEXAMETHASONE 10 MG/ML VIAL IVP SCH ×2 (05:27→11:38)
[2018-10-10 07:46] VITALS: BP 124/89
--- NOTE | 2018-10-10 14:54 | GDS ---
[f rep st] DISCHARGE SUMMARY DISCHARGE DIAGNOSES: 1. Infectious mononucleosis. 2. Transaminitis. 3. Rash. PHYSICAL EXAM: GENERAL: The patient is alert. VITAL SIGNS: Afebrile at 36.6, pulse 63, respirator y rate 16, blood pressure is 124/89. She is saturating 95% on room air. I have seen and evaluated gopi joy patient on the day of discharge. HOSPITAL COURSE: The patient is a 23-year-old female who presents with complaints of sore throat. S he was evaluated and diagnosed with: 1. Infectious mononucleosis. During this hospitalization, she was treated with supportive care incl uding clindamycin as well as Decadron. Her symptoms have significantly improved. Her strep culture is negative and her antibiotic therapy will be discontinued. She will continue Decadron in the outpa tient setting as previously prescribed. 2. Transaminitis. This is in the setting of acute infection. Her LFTs are stable and are trending down. She will follow up outside the hospital in 1 week with her primary care physician at [facility] and have her LFTs reevaluated. 3. Rash. This is likely secondary to the patient's infectious process. It is improving and resolvi ng. DISPOSITION: She will be discharged home with her father. There are no pending studies. Followup will be with her primary care physician at [facility]. Evaluation of her liver enzymes is r ecommended at that time. DISCHARGE MEDICATIONS: Please refer to EMR form. I have not provided any prescriptions for the [place] ent at time of disposition. She will continue on her Decadron as previously prescribed. /[id number]/MODL
== END 2018-10-10 13:13 | disposition home or self-care (01) ==
LOC: F3E 22:24
PROVIDERS: ADMIT Internal Medicine; ATTEND Internal Medicine
DX: B27.99 Infectious mononucleosis, unspecified with other complication (principal); R94.5 Abnormal results of liver function studies; R21 Rash and other nonspecific skin eruption; E86.9 Volume depletion, unspecified; R59.0 Localized enlarged lymph nodes; J35.3 Hypertrophy of tonsils with hypertrophy of adenoids
CPT/HCPCS: 96361; 96365; 96375; 96376; 99285; G0378; J1100; J1885